=== PATIENT | female | born 1965 | race African-American/Black ===

== ENCOUNTER 2016-10-01 13:41 | Emergency (ER) | payer OTHER, BC ==
[~2016-10-01] VITALS: Ht 162.6 cm; Wt 93.0 kg
[~2016-10-01 13:41] MED LIST: GLUCOPHAGE XR500 MG PO; GLUCOPHAGE500 MG PO
[2016-10-01] MEDS ORDERED: INVOKANA100 MG PO (14:35)
[2016-10-01] MEDS ORDERED: TRULICITY1.5 MG/0.5 SQ (14:35)
[2016-10-01] MEDS ORDERED: LISINOPRIL10 MG PO (14:35)
[2016-10-01] MEDS ORDERED: TROKENDI XR25 MG PO (14:35)
[2016-10-01 16:25] VITALS: BP 126/55
[2016-10-01] MEDS ORDERED: NORCO 5-325 TA1 EACH PO (16:44)
[2016-10-07] MEDS ORDERED: PHENTERMINE H37.5 M1 PO (10:28)
[2016-10-07] MEDS ORDERED: LEVEMIR FL100 UNIT/2 SUBQ (10:29)
[2016-10-07] MEDS ORDERED: IBUPROFEN 200200 M1 PO (10:30)
== END 2016-10-01 17:23 | disposition home or self-care (01) ==
LOC: ER 13:41
DX: S92.002A Unspecified fracture of left calcaneus, initial encounter for closed fracture (principal); J45.909 Unspecified asthma, uncomplicated; E11.9 Type 2 diabetes mellitus without complications; Z98.890 Other specified postprocedural states; Z88.0 Allergy status to penicillin; Z88.2 Allergy status to sulfonamides; W11.XXXA Fall on and from ladder, initial encounter; Y93.89 Activity, other specified; Y92.89 Other specified places as the place of occurrence of the external cause; Y99.8 Other external cause status

== ENCOUNTER 2016-10-08 07:07 | Day surgery (SDC) | payer OTHER ==
[~2016-10-08] VITALS: Ht 162.6 cm; Wt 93.0 kg
--- NOTE | ~2016-10-08 | O ---
[facility] [place] [address] OPERATIVE REPORT Name: TIKI CACERES Room #: 150-10 [facility]#: [id number] Admission: 10/08/16 Attend Phys: Ruben Brunner MD Discharge: Date of : 65 Report #: [id number] THIS REPORT FOR: //name// CC: Ruben Coatssneha Bean DATE OF SERVICE: 10/08/2016 DATE OF SERVICE: 10/08/2016 PREOPERATIVE DIAGNOSIS: Left calcaneus fracture. POSTOPERATIVE DIAGNOSIS: Left calcaneus fracture. PROCEDURE: Left calcaneus open reduction and internal fixation. SURGEON: Ruben Brunner M.D. ANESTHESIA: General. ESTIMATED BLOOD LOSS: Minimal. DRAINS: None. TOURNIQUET TIME: 90 minutes. DESCRIPTION OF PROCEDURE: The patient brought to the operating room where she was placed under general anesthesia. Once under adequate general anesthesia, she was placed into the lateral decubitus position on the operative table. Her left lower extremity was then prepped and draped in sterile manner. The extremity was elevated, exsanguinated, tourniquet placed to 300 mmHg. A lateral incision in the sinus tarsi was then made. This was dissected down through the soft tissue to the fracture. Any hematoma was evacuated from the fracture site and subsequent reduction of the posterior facet was then able to be achieved and a lag screw was placed across the posterior facet utilizing fluoroscopy for guidance. Once the posterior facet was reduced, we then reduced the anterior facet as well with a plate from [employer]. This was placed along the lateral wall of the calcaneus. Subsequent fixation in the posterior facet region as well as in the anterior portion of the calcaneus as well as in the posterior tuberosity was then achieved. This was then done under fluoroscopic guidance. Excellent fixation and alignment was achieved as verified under fluoroscopy. The wound was then irrigated copiously and closed with 2-0 Vicryl in the deep and subcutaneous tissues and patty were used for the skin. The wound was dressed with Xeroform, 4 x 4s, and sterile soft compressive dressing with a short leg cast placed. Tourniquet was let down in approximately 90 minutes. Toes were pink and warm with good capillary refill. There were no [facility] [address] [place] [address] OPERATIVE REPORT Name: TIKI CACERES Room #: 150-10 [facility]#: [id number] Admission: 10/08/16 Attend Phys: Ruben Brunner MD Discharge: Date of : 65 Report #: [id number] complications from the procedure. The patient tolerated the procedure well and went to the recovery room without incident. By: 1440 1530 Ruben Brunner MD /nt
--- NOTE | ~2016-10-08 | EKG ---
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
[~2016-10-08 07:07] MED LIST changes: +IBUPROFEN 200200 M1 PO; +INVOKANA100 MG PO; +LEVEMIR FL100 UNIT/2 SUBQ; +LISINOPRIL10 MG PO; +NORCO 5-325 TA1 EACH PO; +PHENTERMINE H37.5 M1 PO; +TROKENDI XR25 MG PO; +TRULICITY1.5 MG/0.5 SQ
[2016-10-08 11:47] VITALS: BP 102/66
[2016-10-08] MEDS ORDERED: ASA5UEC PO (14:33)
[2016-10-08] MEDS ORDERED: PERCOCET 7.5-31 EACH PO (14:33)
[2016-10-08 19:22] VITALS: BP 128/71
[2016-10-09 00:05] VITALS: BP 116/73
[2016-10-09 03:19] VITALS: BP 132/63
[2016-10-09 04:53] LABS: HEMATOCRIT 38.8 % (37.0-47.0); HEMOGLOBIN 12.8 gm/dL (12.0-15.0)
[2016-10-09 04:58] LABS: POTASSIUM 4.4 mmol/L (3.5-5.1)
[2016-10-09 08:00] VITALS: BP 123/62
[2016-10-09 15:49] VITALS: BP 123/62
== END 2016-10-09 16:50 | disposition home or self-care (01) ==
LOC: TBA 07:07 → OR 07:07 → 4N 15:47 → OR 10-09 16:50
PROVIDERS: Orthopaedic Surgery Foot and Ankle Surgery
DX: S92.002A Unspecified fracture of left calcaneus, initial encounter for closed fracture (principal); X58.XXXA Exposure to other specified factors, initial encounter; Y93.89 Activity, other specified; Y92.89 Other specified places as the place of occurrence of the external cause; Y99.8 Other external cause status; J45.909 Unspecified asthma, uncomplicated; E11.9 Type 2 diabetes mellitus without complications; I10 Essential (primary) hypertension; Z88.0 Allergy status to penicillin; Z88.2 Allergy status to sulfonamides; Z79.899 Other long term (current) drug therapy; Z98.890 Other specified postprocedural states